=== PATIENT | female | born 1950 | race African-American/Black ===

== ENCOUNTER → 2022-08-08 | Outpatient (CLI) | payer MEDICARE ==
[2022-08-08 09:27] LABS: BASOPHILS % (AUTO) 0.3 % (0.0-5.0); EOSINOPHILS % (AUTO) 0.3 % (0.0-8.0); HEMATOCRIT 37.4 % (36-48); LYMPHOCYTES % (AUTO) 48.6 % (21.0-51.0); MEAN CORPUSCULAR HEMOGLOBIN 22.6 pg (27.0-33.0); MEAN CORPUSCULAR HGB CONC 30.2 g/dL (32.0-36.0); MEAN CORPUSCULAR VOLUME 74.9 fL (79-99); MONOCYTES % (AUTO) 17.7 % (3.0-13.0); NEUTROPHILS % (AUTO) 32.5 % (40.0-77.0); PLATELET COUNT (AUTO) 58 K/uL (130-400); RED BLOOD CELL COUNT(AUTO) 4.99 MIL/uL (4.00-5.50); RED CELL DISTRIBUTION WIDTH 18.1 % (11.0-15.5); WHITE BLOOD COUNT (AUTO) 3.2 K/uL (4.8-10.8)
[2022-08-08 10:21] LABS: EOSINOPHILS % (MANUAL) 1 % (1-6); LYMPHOCYTES % (MANUAL) 49 % (22-44); MAN.DIFF COMMENT-IMPRESSION MANUAL DIFFERENTIAL; MONOCYTES % (MANUAL) 16 % (2-9); REACTIVE LYMPHOCYTES 1 % (0-0); SEGMENTED NEUTROPHILS % 33 % (40-70)
[2022-08-08 10:22] LABS: PLATELET MORPHOLOGY COMMENT DECREASED
== END | disposition home or self-care (01) ==
LOC: LAB 08:26
PROVIDERS: ATTEND Internal Medicine Gastroenterology
DX: D69.49 Other primary thrombocytopenia (principal)
CPT/HCPCS: 36415; 85025; 86156; 86157